=== PATIENT | female | born 1950 | race Caucasian/White ===

== ENCOUNTER 2016-05-24 13:50 | Observation (INO) | payer MEDICARE, OTHER ==
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
--- NOTE | 2016-05-24 14:42 | RAD ---
Five view cervical spine Indication: pain Comparison: None. Impression: Moderate to severe disc space height loss at the C4-C5 through the C7-T1 disc space levels with anterior posterior osteophyte formation. MRI can better evaluate for possible spinal canal compromise. No acute fracture or subluxation identified. Bilateral neural foraminal narrowing suspected at C4-C5 and C5-C6 due to uncovertebral hypertrophy. Atherosclerosis aorta. Electronically signed by: Manish Dalton MD 05/24/2016 14:40
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
[2016-05-24] MEDS ORDERED: fentaNYL CITRATE INJ 50 MCG/ML AMP IV ONE (15:45)
[2016-05-24] MEDS ORDERED: ONDANSETRON INJ 4 MG/2 ML VIAL IV PRN (17:45)
[2016-05-24] MEDS ORDERED: MAGNESIUM HYDROXIDE 30 ML UD PO PRN (17:45)
[2016-05-24] MEDS ORDERED: HYDROcodone 7.5MG/APAP 325MG 1 EA TAB PO PRN (17:53)
[2016-05-24] MEDS ORDERED: traMADol HCL 50 MG TAB PO PRN (17:53)
--- NOTE | 2016-05-24 17:59 | PCM.CORE ---
Physician DVT/VTE - Prophylaxis Currently: Patient already on anticoagulation therapy - Nurse DVT Assessment & Total Each Risk Factor Represents 3 Points: Hx of DVT/PE Each Risk Factor Represents 2 Points: Age 60-74 Each Risk Factor Represents 1 Point: Medical PT at Bed Rest Each Risk Factor is 1 Point: Obesity (BMI >25) DVT Assessment Score: 7 - 5 or more Very High Risk Treatments: Sequential Compression Device
[2016-05-24] MEDS ORDERED: IV SET AND CAP CHANGE INJ INJ SCH (18:00)
[2016-05-24] MEDS: amLODIPine BESYLATE 5 MG TAB PO SCH (18:33)
[2016-05-24] MEDS: SODIUM CHLORIDE 0.9% (FLUSH) 10 ML SYG IV PRN ×2 (19:55→23:16)
[2016-05-24] MEDS: SODIUM CHLORIDE 0.9% (FLUSH) 10 ML SYG IV SCH (20:54)
[2016-05-24] MEDS: ONDANSETRON INJ 4 MG/2 ML VIAL IV PRN (23:15)
[2016-05-25] MEDS ORDERED: OMEPRAZOLE CAP 20 MG CAP PO SCH (06:30)
[2016-05-25] MEDS ORDERED: NEBIVOLOL 2.5 MG TAB ONE (07:56)
[2016-05-25] MEDS ORDERED: POTASSIUM CHLORIDE 8 MEQ TAB ONE (07:57)
[2016-05-25] MEDS ORDERED: TOPIRAMATE 25 MG TAB ONE (07:57)
[2016-05-25] MEDS ORDERED: VALSARTAN 80 MG TAB PO SCH (09:00)
[2016-05-25] MEDS ORDERED: POTASSIUM CHLORIDE 8 MEQ TAB PO SCH (09:00)
[2016-05-25] MEDS ORDERED: TOPIRAMATE 25 MG TAB PO SCH (09:00)
[2016-05-25] MEDS ORDERED: SPIRONOLACTONE 25 MG TAB PO SCH (09:00)
[2016-05-25] MEDS ORDERED: NEBIVOLOL 2.5 MG TAB PO SCH (09:00)
[2016-05-25] MEDS: amLODIPine BESYLATE 5 MG TAB PO SCH (09:06)
[2016-05-25] MEDS: SODIUM CHLORIDE 0.9% (FLUSH) 10 ML SYG IV SCH (09:06)
[2016-05-25 10:25] VITALS: BP 121/71; TEMP 96.4; O2SAT 97
[2016-05-25] MEDS ORDERED: PROMETHAZINE SUPP 25 MG SUP PR ONE ×2 (11:18→11:23)
[2016-05-25] MEDS: ONDANSETRON INJ 4 MG/2 ML VIAL IV PRN (11:20)
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
== END 2016-05-25 14:14 | disposition home or self-care (01) ==
LOC: ER 13:50 → MS 15:39
PROVIDERS: ADMIT Emergency Medicine; ATTEND Nurse Practitioner Family
DX: S13.4XXA Sprain of ligaments of cervical spine, initial encounter (principal); S09.8XXA Other specified injuries of head, initial encounter; M50.322 Other cervical disc degeneration at C5-C6 level; M25.78 Osteophyte, vertebrae; G44.309 Post-traumatic headache, unspecified, not intractable; M62.838 Other muscle spasm; I48.2 Chronic atrial fibrillation; I10 Essential (primary) hypertension; I69.398 Other sequelae of cerebral infarction; H53.8 Other visual disturbances; G25.2 Other specified forms of tremor; V43.53XA Car driver injured in collision with pick-up truck in traffic accident, initial encounter; Y92.411 Interstate highway as the place of occurrence of the external cause; Y93.89 Activity, other specified; Z79.01 Long term (current) use of anticoagulants; Z79.899 Other long term (current) drug therapy; Z88.6 Allergy status to analgesic agent; Z90.49 Acquired absence of other specified parts of digestive tract; Z82.3 Family history of stroke; Z83.3 Family history of diabetes mellitus; Z82.49 Family history of ischemic heart disease and other diseases of the circulatory system; Z80.9 Family history of malignant neoplasm, unspecified
CPT/HCPCS: 36415 ×2; 70450; 70551; 72050; 72141; 80053; 81001; 85025; 85610; 94760 ×3; 96374; 96375; 96376 ×2; 99284; G0378; J2405 ×2; J3010

== ENCOUNTER → 2016-09-29 | Outpatient (CLI) | payer MEDICARE, OTHER ==
--- NOTE | 2016-09-29 18:55 | MRI ---
EXAM: Brain w/oContrast CLINICAL INDICATION: 65-year-old female with dizziness. COMPARISON: 05/25/2016. TECHNIQUE: Multiplanar, multi-sequence MR imaging of the brain without contrast. FINDINGS: No abnormal increased signal intensity is present on diffusion-weighted imaging to suggest restricted diffusion/acute infarction. T2/flair weighted imaging reveals multifocal areas of patchy increased signal intensity present in a subcortical and periventricular deep white matter distribution, a nonspecific finding however may be seen with small vessel ischemic change. There is no evidence of intracranial hemorrhage, mass or edema. Midline structures are within normal limits. The ventricles and basal cisterns are normal in size and configuration. Major intracranial flow voids are identified. The paranasal sinuses and mastoid air cells are patent. IMPRESSION: 1. No abnormal increased signal intensity is present on diffusion-weighted imaging to suggest restricted diffusion/acute infarction. 2. T2/flair weighted imaging reveals multifocal areas of patchy increased signal intensity present in a subcortical and periventricular deep white matter distribution, a nonspecific finding however may be seen with small vessel ischemic change. Electronically signed by: Raven Awad MD 09/29/2016 6:55 PM CDT
== END | disposition home or self-care (01) ==
LOC: MRI 12:52
PROVIDERS: ATTEND Neuromusculoskeletal Medicine & OMM
DX: R42 Dizziness and giddiness (principal)

== ENCOUNTER → 2017-09-19 | Outpatient (CLI) | payer MEDICARE, OTHER | LOC: GMAJ 11:28 | PROVIDERS: ATTEND Family Medicine | DX: I10 Essential (primary) hypertension (principal) ==

== ENCOUNTER → 2018-08-28 | Outpatient (CLI) | payer MEDICARE, OTHER | LOC: LAB.O 10:16 | PROVIDERS: ATTEND Internal Medicine Cardiovascular Disease | DX: E78.2 Mixed hyperlipidemia (principal); E87.6 Hypokalemia; I10 Essential (primary) hypertension; I25.10 Atherosclerotic heart disease of native coronary artery without angina pectoris; I48.0 Paroxysmal atrial fibrillation; I73.9 Peripheral vascular disease, unspecified; R53.82 Chronic fatigue, unspecified; R73.09 Other abnormal glucose ==

== ENCOUNTER → 2018-09-19 | Outpatient (CLI) | payer MEDICARE, OTHER ==
--- NOTE | 2018-09-19 19:15 | MRI ---
EXAM DESCRIPTION: Lumbar Spine w/o Contrast : Magnetic Resonance Imaging. CLINICAL HISTORY: RADICULOPATHY COMPARISON: None. TECHNIQUE: Multiplanar, multiple standard sequences, non contrast MRI, lumbar spine. FINDINGS: L5-S1: Moderate disc space loss with diffuse Modic type II endplate reactive changes. Posterior broad-based disc osteophyte bulge into the canal. Bilateral mild hypertrophic facet arthrosis with mild canal narrowing. Bilateral disc osteophyte encroachment on the foramina with moderate narrowing on the right in borderline foraminal stenosis on the left. L4-L5: 2 mm grade 1 anterolisthesis. Posterior broad-based disc bulge. Moderate bilateral hypertrophic facet arthrosis and enlarged flavum ligaments with mild to moderate canal narrowing. This facets also causing moderate left foraminal narrowing and moderate to severe right foraminal narrowing. Bilateral narrowing of the subarticular recesses. Minimal deformity of the right L5 pars interarticulares. L3-L4: Disc space preserved with disc desiccation. No significant bulge. Bilateral mild hypertrophy of the facets and ligaments with mild canal narrowing. Mild left foraminal narrowing with disc bulge causing moderate right foraminal narrowing. L2-L3: Disc desiccation minimal disc space loss with anterior bulging and minimal posterior bulging. Hypertrophic arthrosis left facet with enlarged flavum ligament. Mild to moderate bilateral foraminal narrowing. Bilateral mild narrowing of the subarticular recesses. L1-L2: Disc desiccation with anterior bulge and endplate ridging. Trace 1 mm retrolisthesis. No significant disc bulge. Left facet hypertrophic arthrosis and enlargement of the flavum ligament but no significant canal narrowing. Bilateral moderate foraminal narrowing. Conus terminates at L2. T12-L1: Minimal disc desiccation with anterior bulging and endplate ridging. Minimal hypertrophy of the flavum ligaments with no significant canal narrowing. Large perineural cyst on the exiting right T12 nerve root in the foramen. Mild narrowing left foramen. T11-T12: Disc space maintained. Anterior bulging. Small left paracentral bulge and mild canal narrowing. Posterior elements unremarkable. Bilateral foramina are patent. L2-L5 levoscoliosis. Paravertebral soft tissues paraspinal muscle atrophy.. Otherwise normal marrow signal in the remaining vertebral bodies and the posterior elements. Vertebral bodies are not compressed at any level. IMPRESSION: 1. Moderate spondylosis L5-S1 with disc space loss and trace retrolisthesis. Left foraminal stenosis and encroachment on the exiting left L5 nerve. Correlate for radiculopathy. 2. Grade 1 anterolisthesis L4-L5. Minimal deformity of the right L5 pars interarticularis. Moderate spondylosis and narrowing of the bilateral subarticular recesses. Moderate to severe right foraminal narrowing with no significant narrowing of the canal. Moderate hypertrophic facet arthrosis and ligament enlargement. 3. Large perineural cyst in the right foramen with possible mass effect on the exiting right T12 nerve root. Electronically signed by: Sam Cutler MD 09/19/2018 7:13 PM CDT
== END ==
LOC: MRI 10:22
PROVIDERS: ATTEND Family Medicine
DX: M54.16 Radiculopathy, lumbar region (principal); M47.897 Other spondylosis, lumbosacral region; M43.16 Spondylolisthesis, lumbar region; M71.38 Other bursal cyst, other site

== ENCOUNTER 2019-09-22 10:09 | Emergency (ER) | payer MEDICARE, OTHER ==
[2019-09-22 10:38] VITALS: TEMP 97.7
[2019-09-22 11:13] VITALS: BP 167/97; O2SAT 97
--- NOTE | 2019-09-22 11:32 | CT ---
EXAM DESCRIPTION: Head: Computed Tomography. CLINICAL HISTORY: fell, hit head posteriorly, on Eliquis COMPARISON: CT scan cervical spine on this visit. MRI scan of the brain September 2016. CT scan of the head May 2016. TECHNIQUE: Non-helical axial scans through the skull and brain, at 5 x 20 mm intervals, non-contrast. Coronal and sagittal 2.0 mm reconstructions. Total Exam DLP: 860 mGy-cm. This exam was performed according to our departmental dose-optimization program which includes automated exposure control, adjustment of the mA and/or kV according to patient size and/or use of iterative reconstruction technique; to reduce radiation dose to as low as reasonably achievable (ALARA). FINDINGS: No hemorrhage, no mass-effect, and no midline shift. Normal foreman-white matter differentiation. Slightly lower white matter signal in the vicinity of the left frontal horn of the lateral ventricle in the subcortical left frontal white matter. No hemorrhage or mass effect. Stable since the prior study. No abnormal radiodense material in the brain parenchyma. Vascular calcifications minimal in the anterior circulation; physiologic calcifications in the pineal gland and choroid plexus. No effacement or displacement of the ventricles, CSF spaces, or subdural spaces. No extra axial fluid collection or hemorrhage. No gross abnormalities of the bony calvarium. Included paranasal sinuses and mastoid air cells are well - aerated. IMPRESSION: 1. No hemorrhage, no mass effect, no midline shift. No extra-axial hemorrhage. Low-density in the left frontal horn periventricular white matter and the adjacent subcortical white matter of the left frontal horn which appears relatively stable since the prior study [address] scans are insensitive for detecting small CVAs in the first 24 hours after onset. Evaluation of the brain stem is also limited. If symptoms persist, consider NON-EMERGENT MRI scan of the brain with diffusion imaging. Electronically signed by: Sam Cutler MD 09/22/2019 11:30 AM CDT
--- NOTE | 2019-09-22 11:47 | CT ---
EXAM DESCRIPTION: Cervical Spine: Computed Tomography. CLINICAL HISTORY: 68 years Female fell, hit head posteriorly, on Eliquis COMPARISON: CT scan head without contrast on the same visit. MR cervical spine May 2016. Radiograph cervical spine May 2016. TECHNIQUE: Spiral, axial 2.5 x 2.5 mm scans through the cervical spine without contrast. Coronal and sagittal 2.0 mm Reconstructions. Total Exam DLP: 403 mGy-cm. This exam was performed according to our departmental dose-optimization program which includes automated exposure control, adjustment of the mA and/or kV according to patient size and/or use of iterative reconstruction technique; to reduce radiation dose to as low as reasonably achievable (ALARA). FINDINGS: Arthrosis in the atlantoaxial joint with hypertrophic changes. Atlantooccipital joint facets and C1-C2 facet joints bilaterally are unremarkable. No fracture. Spondylosis at C3-C4, C4-C5, C5-C6, C6-C7, and C7-T1. Spine is relatively straightened. Also facet arthrosis at most of these levels endplate and uncinate spurs. Bilateral significant neural foraminal narrowing at C5-C6 due to arthrosis. No fracture at these levels. Large spur protruding into the right ventral canal to the right of midline posteriorly at C7-T1 at least abutting the right ventral cord and the right C8 nerve before it exits the foramen. Not associated with fracture. Mosaic density in the bilateral lung hatfield indicating chronic process. Bilateral small lymph nodes in the neck soft tissues. 1.5 x 1.4 cm low-density nodule in the right thyroid lobe. IMPRESSION: 1. No acute bony abnormality or fracture in the cervical spine. No compression type vertebral body fracture. No traumatic spondylolisthesis. No perched or locked facets. 2. Spondylosis, facet arthrosis, canal and neural-foraminal narrowing at several levels as described above. 3. 1.5 cm incidental thyroid nodule (right). Recommend thyroid US. Reference: J Am Emmie Radiol. 2015 Jun;12(2): 143-50 Electronically signed by: Sam Cutler MD 09/22/2019 11:45 AM CDT
--- NOTE | 2019-09-22 11:53 | ED.PDOC ---
History of Present Illness - General Chief Complaint: Trauma Stated Complaint: Fell in Shower Time Seen by Provider: 09/22/19 10:28 Source: patient Exam Limitations: no limitations - History of Present Illness Initial Comments: The patient is a 68-year-old female but simply tripped and fell in the shower this morning and hit the back of her head. No loss of consciousness. She is very anxious because she does take Eliquis secondary to history of atrial fibrillation. No syncope or near syncope. No significant dizziness prior. No chest pain. No other injury. She does have a very small hematoma to the left posterior inferior occipital area. No laceration. Timing/Duration: momentarily Severity: mild Improving Factors: nothing Worsening Factors: nothing Associated Symptoms: denies symptoms Allergies/Adverse Reactions: Allergies Codeine Allergy (Verified 09/22/19 10:43) Home Medications: Ambulatory Orders Icvshgvvcx-Bmmpclmyo-Keaoufwkw [Exforge Hct 10-160-25 mg] 1 tab PO DAILY 11/26/12 Spironolactone 25 mg PO DAILY 11/26/12 Topiramate [Topamax Sprinkle] 100 mg PO DAILY 11/26/12 Apixaban [Eliquis] 5 mg PO BID 05/24/16 Sxemyfbytk-Igsebryqibfbc-Suvmr [Butalbital/Acetaminophen/ 50-300-40 mg] 1 cap PO Q12H PRN 05/24/16 Fenofibrate Micronized [Antara] 90 mg PO DAILY 05/24/16 Nebivolol HCl [Bystolic] 5 mg PO DAILY 05/24/16 Potassium Chloride [Micro-K] 8 meq PO DAILY 05/24/16 Review of Systems - Review of Systems Constitutional: States: no symptoms reported EENTM: States: no symptoms reported Respiratory: States: no symptoms reported Cardiology: States: no symptoms reported Gastrointestinal/Abdominal: States: no symptoms reported Genitourinary: States: no symptoms reported Musculoskeletal: States: no symptoms reported Skin: States: see HPI Neurological: States: no symptoms reported Endocrine: States: no symptoms reported All other Systems: No Change from Baseline Past Medical History (General) - Patient Medical History Hx Seizures: No Hx Stroke: Yes - May 2015, visual problems. Hx Dementia: No Hx Asthma: No Hx of COPD: No Hx Cardiac Disorders: Yes - a.fib on eliquis Hx Congestive Heart Failure: No Hx Pacemaker: No Hx Hypertension: Yes Hx Thyroid Disease: No Hx Diabetes: No Hx Gastroesophageal Reflux: No Hx Renal Disease: No Hx Cancer: No Hx of HIV: No Hx Hepatitis C: No Hx MRSA: No - Vaccination History Hx Tetanus, Diphtheria Vaccination: No Hx Influenza Vaccination: Yes Hx Pneumococcal Vaccination: Yes - Social History Hx Tobacco Use: No Hx Chewing Tobacco Use: No Hx Alcohol Use: No Hx Substance Use: No Hx Substance Use Treatment: No Hx Depression: No Hx Physical Abuse: No Hx Emotional Abuse: No Hx Suspected Abuse: No - Activities of Daily Living Hospice Agency (if applicable):: None - Female History Patient is a Female of Child Bearing Age (10 -59 yrs old): No Patient : No - postmenopausal - Triage Comment ED Triage Comment: pt voices falling in shower while shaving legs, contusion to lower back of head. pt conversing easily and appropriately. no deficits noted. Family Medical History - Family History Mother Family History: Unknown Living Status: Physical Exam - Physical Exam General Appearance: Alert, Comfortable, No apparent distress Eye Exam: bilateral normal Ears, Nose, Throat: hearing grossly normal, normal ENT inspection Neck: full range of motion, supple, other - Mild tenderness at the site of the scalp hematoma to the left base of the occipital area Respiratory: lungs clear, normal breath sounds, no respiratory distress, no accessory muscle use Cardiovascular/Chest: normal peripheral pulses, regular rate, rhythm, no edema, other - Occasional sinus bradycardia with a 2-1 conduction block Peripheral Pulses: radial,right: 2+, radial,left: 2+ Gastrointestinal/Abdominal: non tender, soft Rectal Exam: deferred Back Exam: no CVA tenderness, no vertebral tenderness Extremity: normal range of motion, non-tender, normal inspection, no pedal edema, normal capillary refill 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 The patient has a small scalp hematoma posteriorly but no laceration. CT scan of the head and cervical spine are both reassuring from the standpoint of acute pathology. The patient does have a incidentally noted 1.5 cm thyroid nodule that will need follow-up with a follow-up ultrasound as an outpatient. This can be arranged with her primary care doctor. Additionally on telemetry monitoring, the patient does have brief periods of bradycardia related to intermittent 2-1 conduction block, down into the mid 40s. the patient is on nebivolol and Eliquis for history of atrial fibrillation. This is likely a longstanding finding with this patient. She appears to be completely asymptomatic with these brief periods and is not hypotensive. Consideration could be given with her primary care doctor towards a Holter monitor, certainly if consideration was being given towards increasing a beta-carley or calcium channel carley on the patient. Episodes recorded here at least appear to be brief lasting less than 30 seconds or so. I do want her to follow-up with her primary care doctor later this week for follow-up of these issues. ER warnings are given. galdino [email or web address] [id number] 09/22/19 12:02 - Results/Orders Results/Orders: Head CT shows no acute pathology. No evidence of any intracranial bleed. CT scan of the cervical spine shows numerous chronic degenerative changes. No evidence of any fracture or acute pathology. She does have a 1.5 cm thyroid nodule that ultrasound follow-up is recommended on. Departure - Departure Clinical Impression: Bradycardia, Thyroid nodule Fall at home Qualifiers: Encounter type: initial encounter Qualified Code(s): W19.XXXA - Unspecified fall, initial encounter; Y92.009 - Unspecified place in unspecified non- institutional (private) residence as the place of occurrence of the external cause Scalp hematoma Qualifiers: Encounter type: initial encounter Qualified Code(s): S00.03XA - Contusion of scalp, initial encounter Disposition: Discharge to Home or Self Care Condition: Fair Departure Forms: ED Discharge - Pt. Copy, Patient Portal Self Enrollment Instructions: DI for Trauma Diet: regular diet Activity: increase activity as tolerated Referrals: Dinesh Pa MD [Primary Care Provider] - 1-5 Days Home Medications: Ambulatory Orders Ptmczggqqy-Dfgyufluc-Pzemvemcf [Exforge Hct 10-160-25 mg] 1 tab PO DAILY 11/26/12 Spironolactone 25 mg PO DAILY 11/26/12 Topiramate [Topamax Sprinkle] 100 mg PO DAILY 11/26/12 Apixaban [Eliquis] 5 mg PO BID 05/24/16 Oieucoeuyc-Eqqzrguttgjas-Cofkz [Butalbital/Acetaminophen/ 50-300-40 mg] 1 cap PO Q12H PRN 05/24/16 Fenofibrate Micronized [Antara] 90 mg PO DAILY 05/24/16 Nebivolol HCl [Bystolic] 5 mg PO DAILY 05/24/16 Potassium Chloride [Micro-K] 8 meq PO DAILY 05/24/16 Additional Instructions: The patient is a 68-year-old female with an accidental fall in the shower this morning. The patient has a small scalp hematoma posteriorly but no laceration. CT scan of the head and cervical spine are both reassuring from the standpoint of acute pathology. The patient does have a incidentally noted 1.5 cm thyroid nodule that will need follow-up with a follow-up ultrasound as an outpatient. This can be arranged with her primary care doctor. Additionally on telemetry monitoring, the patient does have brief periods of bradycardia related to intermittent 2-1 conduction block, down into the mid 40s. the patient is on nebivolol and Eliquis for history of atrial fibrillation. This is likely a longstanding finding with this patient. She appears to be completely asymptomatic with these brief periods and is not hypotensive. Consideration could be given with her primary care doctor towards a Holter monitor, certainly if consideration was being given towards increasing a beta-carley or calcium channel carley on the patient. Episodes recorded here at least appear to be brief lasting less than 30 seconds or so. I do want her to follow-up with her primary care doctor later this week for follow-up of these issues. ER warnings are given.
== END 2019-09-22 12:24 | disposition home or self-care (01) ==
LOC: ER 10:09
DX: S00.93XA Contusion of unspecified part of head, initial encounter (principal); R00.1 Bradycardia, unspecified; E04.1 Nontoxic single thyroid nodule; I48.91 Unspecified atrial fibrillation; I10 Essential (primary) hypertension; Z86.73 Personal history of transient ischemic attack (TIA), and cerebral infarction without residual deficits; W01.0XXA Fall on same level from slipping, tripping and stumbling without subsequent striking against object, initial encounter; Y92.009 Unspecified place in unspecified non-institutional (private) residence as the place of occurrence of the external cause; Y93.61 Activity, american tackle football

== ENCOUNTER → 2019-10-30 | Outpatient (CLI) | payer MEDICARE, OTHER ==
--- NOTE | 2019-10-31 12:39 | US ---
US THYROID CLINICAL STATEMENT:69 years Female NONTOXIC SINGLE THYROID NODULE. Seen on CT scan cervical spine September 21. COMPARISON: CT scan of the head and cervical spine on September 21. TECHNIQUE: Transcutaneous scanning, grayscale and Doppler modes. FINDINGS: Size right thyroid lobe: 3.1 x 1.8 x 1.4 cm Size left thyroid lobe: 2.9 x 1.5 x 1.1 cm Size isthmus: 0.16 cm Estimated total number of nodules greater than or equal to 1 cm: 1. No dominant solid mass, no distinct cyst, no fluid collection, no large calcifications. Overlying skin was unremarkable. Nodule 1: Size: 1.5 x 1.2 x 1.1 cm Location: Right Mid Composition: solid or almost completely solid: 2 points Echogenicity: isoechoic: 1 point Shape: wider than tall: 0 points Margins: ill-defined: 0 points Echogenic foci: none: 0 points ACR Total Points: 3; ACR TI-RADS risk category: TR3 - mildly suspicious nodule. Nodule 2: Size: 0.9 x 0.8 x 0.5 cm Location: Left Mid Composition: spongiform: 0 points Echogenicity: hypoechoic: 2 points Shape: wider than tall: 0 points Margins: smooth: 0 points Echogenic foci: none: 0 points ACR Total Points: 2; ACR TI-RADS risk category: TR2 - nonsuspicious nodule. Soft tissue around the thyroid gland is unremarkable. IMPRESSION: 1. Nodule 1: ACR TI-RADS 2017 Category TR3. Recommend: Follow-up ultrasound in 1 year.. Recommendations based upon [facility] Best [employer] recommendations and ACR TI-RADS 2017 guidelines. Please see below*. 2. Nodule 2: ACR TI-RADS 2017 Category TR2. Recommend: No further follow-up. 3. Soft tissue around the thyroid gland is unremarkable. *ACR TI-RADS 2017 Recommendations for imaging follow-up of nodules: TR1: No FNA or follow up TR2: No FNA or follow up TR3: FNA if >/= 2.5 cm, follow up if 1.5 - 2.4 cm in 1, 3, and 5 years TR4: FNA if >/= 1.5 cm, follow up if 1.0 - 1.4 cm in 1, 2, 3, and 5 years TR5: FNA if >/= 1.0 cm, follow up if 0.5 - 0.9 cm every year for 5 years ACR TI-RADS recommends that no more than two nodules with the highest ACR TI-RADS total point should be biopsied and no more than four nodules should be followed. These recommendations do not apply to patients with increased risk for thyroid cancer or patients with symptomatic thyroid disease. Electronically signed by: Sam Cutler MD 10/31/2019 12:38 PM CDT
== END ==
LOC: US 11:12
PROVIDERS: ATTEND Family Medicine
DX: E04.1 Nontoxic single thyroid nodule (principal)

== ENCOUNTER 2020-05-06 17:24 | Emergency (ER) | payer MEDICARE, OTHER ==
--- NOTE | 2020-05-06 18:18 | CT ---
PROCEDURE: CT Head Without Intravenous Contrast CLINICAL INDICATION: The patient is 69 years years old, Female; head injury TECHNIQUE: Axial computed tomography images of the head/brain without intravenous contrast. Sagittal and coronal reformatted images were created and reviewed. This CT exam was performed using one or more of the following dose reduction techniques: automated exposure control, adjustment of the mA and/or kV according to patient size, and/or use of iterative reconstruction technique. COMPARISON: CT head dated 09/22/2019 in the FINDINGS: BRAIN: No intracerebral or extracerebral mass lesions are identified. There is mild patchy hypodensity of the cerebral white matter which is nonspecific but likely secondary to chronic microvascular ischemic changes in end vessel distributions. Garcia/white matter distinction is maintained. There is no evidence of intracranial hemorrhage. There is no evidence of acute territorial infarct. (It should be noted that acute infarct may not be discernible in the first [address] ) MIDLINE SHIFT: There is no shift of the midline structures. VENTRICLES: There is prominence of the ventricles, sulci, cerebellar folia, and basilar cisterns consistent with volume loss. BONES/JOINTS: There is no acute calvarial abnormality or other discernible acute osseous abnormalities. SOFT TISSUES: There is no evidence of acute fracture, osseous destruction or osteoblastic changes. Benign hyperostosis frontalis is present. VASCULATURE: There is atherosclerotic calcification in the siphons of the bilateral internal carotid and vertebral arteries. SINUSES: The visualized paranasal sinuses are clear. MASTOID AIR CELLS: The mastoids and middle ears are clear. IMPRESSION: 1. No acute intracranial abnormality. (It should be noted that acute infarct may not be discernible in the first [address]) a follow-up head ct or mri is recommended if neurologic symptoms persist. 2. Volume loss. 3. Nonspecific white matter lucency, most likely deep white matter ischemic changes. Demyelination and gliosis also in the differential. 4. ASVD. 5. Remainder of findings as discussed above. Electronically signed by: Sandra Diallo MD 05/06/2020 6:16 PM [facility]
[2020-05-06 20:05] VITALS: O2SAT 98
--- NOTE | 2020-05-06 20:48 | ED.PDOC ---
History of Present Illness - General Chief Complaint: Trauma Stated Complaint: fall Time Seen by Provider: 05/06/20 19:30 Source: patient, RN notes reviewed, Vital Signs reviewed Exam Limitations: no limitations - History of Present Illness Initial Comments: Patient is a 69-year-old white female with history of atrial fibrillation and on Eliquis who presents a few days status post fall. Patient was getting up out of a chair and tripped and fell back down and then fell back and hit her head. There was no loss of consciousness. Patient denies any current headaches. Though intermittently she has been having mild throbbing headaches at the back of her head. She denies any photophobia. Nothing seems to make the headaches go away or bring them on. Headaches are intermittent. Occurred: other - 3 days ago Severity: mild Pain Location: head Method of Injury: fall Improving Factors: nothing Worsening Factors: nothing Loss of Consciousness: no loss of consciousness Associated Symptoms (Fall): headache Allergies/Adverse Reactions: Allergies Codeine Allergy (Verified 05/06/20 18:27) Home Medications: Ambulatory Orders Spironolactone 25 mg PO DAILY 11/26/12 Apixaban [Eliquis] 5 mg PO BID 05/24/16 Potassium Chloride [Micro-K] 8 meq PO DAILY 05/24/16 Aspirin [Aspirin 81 Low Dose] 81 mg PO DAILY 05/06/20 Bupropion HCl [Bupropion Hydrochloride E] 150 mg PO BID 05/06/20 Carvedilol 6.25 mg PO BID 05/06/20 Cephalexin Monohydrate [Keflex] 500 mg PO TID #15 cap 05/06/20 Cyclobenzaprine HCl [Flexeril] 10 mg PO DAILY 05/06/20 Fenofibrate 54 mg PO DAILY 05/06/20 Losartan Potassium 50 mg PO BID 05/06/20 Rosuvastatin Calcium [Ezallor Sprinkle] 5 mg PO DAILY 05/06/20 Review of Systems - Review of Systems Constitutional: States: no symptoms reported, see HPI. Denies: chills, fever, malaise, weakness EENTM: States: no symptoms reported. Denies: eye pain, blurred vision, double vision Respiratory: States: no symptoms reported. Denies: cough, orthopnea, short of breath Cardiology: States: no symptoms reported. Denies: chest pain, palpitations, syncope Gastrointestinal/Abdominal: States: no symptoms reported. Denies: abdominal pain, diarrhea, nausea, vomiting Musculoskeletal: States: no symptoms reported. Denies: back pain, joint pain, joint swelling, neck pain Skin: States: no symptoms reported. Denies: change in color, rash Neurological: States: see HPI, headache. Denies: tingling, tremors, weakness Endocrine: States: no symptoms reported. Denies: increased hunger, increased thirst, increased urine Hematologic/Lymphatic: States: no symptoms reported All other Systems: Reviewed and Negative Past Medical History (General) - Patient Medical History Hx Seizures: No Hx Stroke: Yes - May 2015, visual problems. Hx Dementia: No Hx Asthma: No Hx of COPD: No Hx Cardiac Disorders: Yes - a.fib on eliquis Hx Congestive Heart Failure: No Hx Pacemaker: No Hx Hypertension: Yes Hx Thyroid Disease: No Hx Diabetes: No Hx Gastroesophageal Reflux: No Hx Renal Disease: No Hx Cancer: No Hx of HIV: No Hx Hepatitis C: No Hx MRSA: No - Vaccination History Hx Tetanus, Diphtheria Vaccination: No Hx Influenza Vaccination: Yes Hx Pneumococcal Vaccination: Yes - Social History Hx Tobacco Use: No Hx Chewing Tobacco Use: No Hx Alcohol Use: No Hx Substance Use: No Hx Substance Use Treatment: No Hx Depression: No Hx Physical Abuse: No Hx Emotional Abuse: No Hx Suspected Abuse: No - Activities of Daily Living Hospice Agency (if applicable):: None - Female History Patient is a Female of Child Bearing Age (10 -59 yrs old): No Patient : No - postmenopausal Family Medical History - Family History Mother Family History: Unknown Living Status: Physical Exam - Physical Exam General Appearance: Alert, Anxious, Well Developed, Well Groomed, Well Hydrated, Well Nourished Head Injury: no evidence of injury Eye Exam: bilateral normal ENT Exam: no evidence of ENT injury, no dental injury Neck Exam: non-tender, full range of motion, normal alignment, normal inspection Cardiovascular/Respiratory: regular rate, rhythm, normal peripheral pulses, no JVD, normal breath sounds, no respiratory distress, murmur Gastrointestinal/Abdominal: normal bowel sounds, non tender, soft Back Exam: normal inspection, no CVA tenderness, no vertebral tenderness Extremity Exam: no evidence of injury, normal range of motion, non-tender 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 05/06/20 20:52 Patient is resting comfortably. CT does not show any bleed or fracture. Labs are relatively unremarkable except some mild renal insufficiency. Patient does have a UTI and therefore I will start her on Keflex. I discussed the plan of care with the patient she voices understanding and agreement. Rupesh Fish M.D. #[id number] - Results/Orders Results/Orders: PROCEDURE: CT Head Without Intravenous Contrast CLINICAL INDICATION: The patient is 69 years years old, Female; head injury TECHNIQUE: Axial computed tomography images of the head/brain without intravenous contrast. Sagittal and coronal reformatted images were created and reviewed. This CT exam was performed using one or more of the following dose reduction techniques: automated exposure control, adjustment of the mA and/or kV according to patient size, and/or use of iterative reconstruction technique. COMPARISON: CT head dated 09/22/2019 in the FINDINGS: BRAIN: No intracerebral or extracerebral mass lesions are identified. There is mild patchy hypodensity of the cerebral white matter which is nonspecific but likely secondary to chronic microvascular ischemic changes in end vessel distributions. Garcia/white matter distinction is maintained. There is no evidence of intracranial hemorrhage. There is no evidence of acute territorial infarct. (It should be noted that acute infarct may not be discernible in the first [address] ) MIDLINE SHIFT: There is no shift of the midline structures. VENTRICLES: There is prominence of the ventricles, sulci, cerebellar folia, and basilar cisterns consistent with volume loss. BONES/JOINTS: There is no acute calvarial abnormality or other discernible acute osseous abnormalities. SOFT TISSUES: There is no evidence of acute fracture, osseous destruction or osteoblastic changes. Benign hyperostosis frontalis is present. VASCULATURE: There is atherosclerotic calcification in the siphons of the bilateral internal carotid and vertebral arteries. SINUSES: The visualized paranasal sinuses are clear. MASTOID AIR CELLS: The mastoids and middle ears are clear. IMPRESSION: 1. No acute intracranial abnormality. (It should be noted that acute infarct may not be discernible in the first [address]) a follow- up head ct or mri is recommended if neurologic symptoms persist. 2. Volume loss. 3. Nonspecific white matter lucency, most likely deep white matter ischemic changes. Demyelination and gliosis also in the differential. 4. ASVD. 5. Remainder of findings as discussed above. Electronically signed by: Sandra Diallo MD 05/06/2020 6:16 PM 05/06/20 19:24 URINE CULTURE W/COLONY COUNT Stat Laboratory Results - last 24 hr 05/06/20 05/06/20 05/06/20 19:24 19:54 19:54 WBC 8.4 RBC 5.38 Hgb 16.2 H Hct 47.9 H MCV 89.0 MCH 30.2 MCHC 33.9 RDW 13.5 Plt Count 148 MPV 7.8 Absolute Neuts (auto) 5.30 Absolute Lymphs (auto) 1.90 Absolute Monos (auto) 0.40 Absolute Eos (auto) 0.70 H Absolute Basos (auto) 0.00 Neutrophils % 62.9 Lymphocytes % 23.0 Monocytes % 5.1 Eosinophils % 8.5 H Basophils % 0.5 Sodium 141 Potassium 3.7 Chloride 106 Carbon Dioxide 22 Anion Gap 16.7 BUN 35 H Creatinine 1.43 H BUN/Creatinine Ratio 24.5 H Random Glucose 93 Serum Osmolality 288.9 Calcium 9.3 Total Bilirubin 0.5 AST 22 ALT 18 Alkaline Phosphatase 51 Serum Total Protein 7.3 Albumin 4.3 Globulin 3.0 Albumin/Globulin Ratio 1.4 Urine Color Yellow Urine Appearance Sl cloudy Urine pH 7.0 Ur Specific [place] 1.015 Urine Protein Negative Urine Glucose (UA) Negative Urine Ketones Negative Urine Blood Negative Urine Nitrite Negative Urine Bilirubin Negative Urine Urobilinogen 1.0 Ur Leukocyte Esterase Large H Urine RBC 0-1 Urine WBC 20-30 H Ur Epithelial Cells 3-5 Urine Bacteria 2+ H Vital Signs 05/06/20 05/06/20 05/06/20 17:25 17:30 19:16 Temperature 98.2 F Pulse Rate [ 75 75 75 pulse ox] Respiratory 20 18 14 Rate Blood Pressure 171/83 170/90 [Left Arm] O2 Sat by Pulse 98 97 Oximetry 05/06/20 20:00 Temperature Pulse Rate [ 68 pulse ox] Respiratory 14 Rate Blood Pressure 178/93 [Left Arm] O2 Sat by Pulse 98 Oximetry EKG performed 06 May 2020 at 1747 hrs.: Sinus rhythm with first-degree AV block at 73 bpm, septal infarct, age indeterminate, no ST or T wave changes concerning for acute ischemia, abnormal EKG no prior EKG available for comparison at this time. Rupesh Fish M.D. #[id number] Departure - Departure Clinical Impression: Fall Qualifiers: Encounter type: initial encounter Qualified Code(s): W19.XXXA - Unspecified fall, initial encounter Concussion Qualifiers: Encounter type: initial encounter Loss of consciousness presence/duration: without LOC Qualified Code(s): S06.0X0A - Concussion without loss of consciousness, initial encounter Headache Qualifiers: Headache type: post-traumatic Headache chronicity pattern: acute headache Intractability: not intractable Qualified Code(s): G44.319 - Acute post- traumatic headache, not intractable UTI (urinary tract infection) Qualifiers: Urinary tract infection type: acute cystitis Hematuria presence: without hematu hank Qualified Code(s): N30.00 - Acute cystitis without hematuria Time of Disposition: 20:54 Disposition: Discharge to Home or Self Care Condition: Good Departure Forms: ED Discharge - Pt. Copy, Patient Portal Self Enrollment Instructions: DI for Trauma, Urinary Tract Infection, Adult (DC), Concussion, Adult (DC) Diet: resume usual diet Activity: increase activity as tolerated Referrals: Dinesh Pa MD [Primary Care Provider] - 1-5 Days Prescriptions: Cephalexin Monohydrate [Keflex] 500 mg PO TID #15 cap Home Medications: Ambulatory Orders Spironolactone 25 mg PO DAILY 11/26/12 Apixaban [Eliquis] 5 mg PO BID 05/24/16 Potassium Chloride [Micro-K] 8 meq PO DAILY 05/24/16 Aspirin [Aspirin 81 Low Dose] 81 mg PO DAILY 05/06/20 Bupropion HCl [Bupropion Hydrochloride E] 150 mg PO BID 05/06/20 Carvedilol 6.25 mg PO BID 05/06/20 Cephalexin Monohydrate [Keflex] 500 mg PO TID #15 cap 05/06/20 Cyclobenzaprine HCl [Flexeril] 10 mg PO DAILY 05/06/20 Fenofibrate 54 mg PO DAILY 05/06/20 Losartan Potassium 50 mg PO BID 05/06/20 Rosuvastatin Calcium [Ezallor Sprinkle] 5 mg PO DAILY 05/06/20
[2020-05-06] MEDS ORDERED: CEPHALEXIN MONOHYDRATE 250 MG CAP PO ONE (21:02)
[2020-05-06 21:11] VITALS: BP 184/93; TEMP 97.1
== END 2020-05-06 21:11 | disposition home or self-care (01) ==
LOC: ER 17:24
DX: S06.0X0A Concussion without loss of consciousness, initial encounter (principal); G44.319 Acute post-traumatic headache, not intractable; N30.00 Acute cystitis without hematuria; I44.0 Atrioventricular block, first degree; I48.91 Unspecified atrial fibrillation; I10 Essential (primary) hypertension; I69.398 Other sequelae of cerebral infarction; Z79.01 Long term (current) use of anticoagulants; Z79.899 Other long term (current) drug therapy; Z88.5 Allergy status to narcotic agent; W01.0XXA Fall on same level from slipping, tripping and stumbling without subsequent striking against object, initial encounter; Y92.9 Unspecified place or not applicable